=== PATIENT | female | born 1970 | race Caucasian/White ===

== ENCOUNTER 2017-12-05 18:10 | Emergency (ER) | payer OTHER, SELFPAY ==
[2017-12-05] MEDS ORDERED: Diazepam 5 MG TAB ONE (19:16)
[2017-12-05] MEDS ORDERED: Dexamethasone 4 MG TAB ONE (19:16)
[2017-12-05] MEDS ORDERED: HYDROcodone/Acetaminophen 5/325 mg Tablet ONE (19:17)
[2017-12-05] MEDS ORDERED: Acetaminophen 325 MG TAB ONE (19:17)
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
== END 2017-12-05 19:31 | disposition home or self-care (01) ==
LOC: MADERS 18:10
DX: S16.1XXA Strain of muscle, fascia and tendon at neck level, initial encounter (principal); E28.2 Polycystic ovarian syndrome; F32.9 Major depressive disorder, single episode, unspecified; Z79.899 Other long term (current) drug therapy; V43.52XA Car driver injured in collision with other type car in traffic accident, initial encounter; Y92.410 Unspecified street and highway as the place of occurrence of the external cause
CPT/HCPCS: 72125; 72128; 72131; J8540

== ENCOUNTER 2017-12-28 08:52 | Emergency (ER) | payer OTHER ==
[2017-12-28] MEDS ORDERED: Ondansetron HCl/PF 4 MG/2 ML Vial ONE (09:37)
[2017-12-28] MEDS ORDERED: Ketorolac Tromethamine 30 MG/ML VIAL ONE (09:37)
[2017-12-28] MEDS ORDERED: methylPREDNISolone Sod Succ/PF 125 MG/2 ML VIAL ONE (09:39)
--- NOTE | 2017-12-28 11:16 | CT ---
CT CERVICAL SPINE WITHOUT CONTRAST: COMPARISON: 12/05/17. TECHNIQUE: CT cervical spine is performed without contrast. Reformatted images are submitted for interpretation . HISTORY: Pain. FINDINGS: Soft tissue neck structures are unremarkable. 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 Upper mediastinum and lung apices are unremarkable. There are varying degrees of central canal stenosis and foraminal narrowing on the basis of degenerat yohannes change. No significant/high grade central canal stenosis or high-grade foraminal narrowing is id entified. The odontoid process is intact. Appropriate articulation of the lateral masses of C1 and C2 as well as the facets. No craniocervical disassociation. Cervical spine vertebral body height is maintained. No fracture or malalignment. Straightening of n ormal cervical lordosis may be due to patient position or muscle spasm. The current study is not ben lored to assess for ligamentous injury. IMPRESSION: 1. No significant interval change. 2. No fracture. 3. No high-grade central canal stenosis or high-grade foraminal narrowing. If there is concern, con copywriter nonemergent MRI. POS: [facility]
== END 2017-12-28 11:10 | disposition home or self-care (01) ==
LOC: MADERS 08:52
DX: M54.2 Cervicalgia (principal); R51 Headache; T50.995A Adverse effect of other drugs, medicaments and biological substances, initial encounter; Q61.3 Polycystic kidney, unspecified; F32.9 Major depressive disorder, single episode, unspecified
CPT/HCPCS: 72125; 96374; 96375; J1885; J2405; J2930